=== PATIENT | male | born 1965 | race Caucasian/White ===

== ENCOUNTER 2016-08-01 12:32 | Emergency (ER) | payer OTHER ==
[2016-08-01 13:33] LABS: BASOPHILS 0.3 % (0.0-2.0); EOSINOPHILS 0 % (0-7); HEMATOCRIT 43.4 % (42.0-54.0); HEMOGLOBIN 14.7 g/dL (13.5-17.5); IMMATURE GRANULOCYTES 0.3 % (0-5); LYMPHOCYTES 4.4 % (15-50); MCH 30.9 pg (26.0-34.0); MCHC 33.9 g/dL (31.0-37.0); MCV 91.2 fL (80.0-100.0); MEAN PLATELET VOLUME 11.1 fL (7.4-10.4); MONOCYTES 15.8 % (2-11); NEUTROPHILS 79.2 % (40-80); PLATELET COUNT 154 10x3/uL (130-400); RBC 4.76 10x6/uL (4.20-6.10); RDW 12.8 % (11.5-14.5); WBC 6.1 10x3/uL (4.8-10.8)
[2016-08-01 13:51] LABS: ALBUMIN 3.8 g/dL (3.4-5.0); BILIRUBIN - TOTAL 0.25 mg/dL (0.2-1.3); CALCIUM 8.3 mg/dL (8.5-10.1); CARBON DIOXIDE 23.7 mmol/L (21.0-32.0); CREATININE - SERUM 1.1 mg/dL (0.6-1.3); POTASSIUM - SERUM 3.7 mmol/L (3.5-5.1); PROTEIN - SERUM 6.6 g/dL (6.4-8.2)
== END 2016-08-01 17:40 | disposition home or self-care (01) ==
LOC: D.ER 12:32
PROVIDERS: Emergency Medicine
DX: J11.1 Influenza due to unidentified influenza virus with other respiratory manifestations (principal); J20.9 Acute bronchitis, unspecified; R50.9 Fever, unspecified; J06.9 Acute upper respiratory infection, unspecified; J45.909 Unspecified asthma, uncomplicated; J44.9 Chronic obstructive pulmonary disease, unspecified; F17.200 Nicotine dependence, unspecified, uncomplicated

== ENCOUNTER 2018-03-31 16:29 | Emergency (ER) | payer SELFPAY ==
[~2018-03-31] VITALS: Ht 188 cm; Wt 77.3 kg
[2018-03-31 16:33] VITALS: Ht 188 cm; Wt 77.3 kg
[2018-03-31] MEDS ORDERED: DICLOFENAC SODI50 MG PO (19:23)
[2018-03-31 19:45] VITALS: BP 140/96
== END 2018-03-31 19:45 | disposition home or self-care (01) ==
LOC: D.ER 16:29
DX: M25.552 Pain in left hip (principal); M16.12 Unilateral primary osteoarthritis, left hip; F17.200 Nicotine dependence, unspecified, uncomplicated

== ENCOUNTER 2019-07-12 13:08 | Emergency (ER) | payer SELFPAY ==
[~2019-07-12] VITALS: Ht 188 cm; Wt 77.3 kg
[~2019-07-12 13:08] MED LIST: DICLOFENAC SODI50 MG PO
[2019-07-12 13:27] VITALS: BP 155/94; Ht 188 cm; Wt 77.3 kg
[2019-07-12] MEDS ORDERED: IPRAT-ALBUT 0.5-3 ML UPD (13:31)
[2019-07-12 14:04] LABS: BILIRUBIN NEGATIVE (NEGATIVE); GLUCOSE NEGATIVE (NEGATIVE); KETONE NEGATIVE (NEGATIVE); NITRITE NEGATIVE (NEGATIVE); UROBILINOGEN NORMAL (NORMAL)
[2019-07-12 14:22] LABS: BASOPHILS 0.5 % (0-2); EOSINOPHILS 3.7 % (0-7); HEMATOCRIT 42.5 % (42.0-54.0); HEMOGLOBIN 14.5 g/dL (13.5-17.5); IMMATURE GRANULOCYTES 0.1 % (0-5); LYMPHOCYTES 39.3 % (15-50); MCHC 34.1 g/dL (31.0-37.0); MCV 90.8 fL (80.0-100.0); MEAN PLATELET VOLUME 10.4 fL (7.4-10.4); MONOCYTES 8.6 % (2-11); NEUTROPHILS 47.8 % (40-80); PLATELET COUNT 251 10x3/uL (130-400); RBC 4.68 10x6/uL (4.20-6.10); RDW 12.7 % (11.5-14.5); WBC 7.3 10x3/uL (4.8-10.8)
[2019-07-12 14:37] LABS: CALC OSMOLALITY 278 mosm/kg (275-300); CALCIUM 8.5 mg/dL (8.5-10.1); CARBON DIOXIDE 28.6 mmol/L (21.0-32.0); CHLORIDE - SERUM 104 mmol/L (98-107); GLUCOSE 84 mg/dL (74-106); POTASSIUM - SERUM 3.4 mmol/L (3.5-5.1); SODIUM 140 mmol/L (136-145); UREA NITROGEN 16 mg/dL (7-18); eGFR NON AFRICAN AMERICAN 82 mL/min (90-120)
[2019-07-12 14:44] LABS: ALBUMIN 3.8 g/dL (3.4-5.0); ALKALINE PHOSPHATASE 103 U/L (30-120); ALT (SGPT) 34 U/L (10-68); AMYLASE - SERUM 86 U/L (25-115); BILIRUBIN - TOTAL 0.17 mg/dL (0.2-1.3); LIPASE 146 U/L (73-393); PROTEIN - SERUM 7.2 g/dL (6.4-8.2); TROPONIN-I < 0.017 ng/mL (0.000-0.060)
[2019-07-12] MEDS ORDERED: PROTONIX20 MG PO (16:02)
== END 2019-07-12 16:24 | disposition home or self-care (01) ==
LOC: D.ER 13:08
PROVIDERS: Emergency Medicine
DX: R10.13 Epigastric pain (principal); E87.6 Hypokalemia

== ENCOUNTER 2020-08-27 20:37 | Inpatient (IN) | payer SELFPAY ==
[~2020-08-27] VITALS: Ht 188 cm; Wt 81.8 kg
[~2020-08-27 20:37] MED LIST changes: +IPRAT-ALBUT 0.5-3 ML UPD; +PROTONIX20 MG PO; +TYLENOL W/CODEI1 TAB PO; +VOLTAREN75 MG PO
[2020-08-27 21:00] VITALS: BP 138/86
[2020-08-27 21:23] LABS: BASOPHILS 0.6 % (0-2); EOSINOPHILS 2.9 % (0-7); HEMATOCRIT 42.2 % (42.0-54.0); HEMOGLOBIN 14.3 g/dL (13.5-17.5); IMMATURE GRANULOCYTES 0.2 % (0-5); LYMPHOCYTES 29.2 % (15-50); MCH 30.9 pg (26.0-34.0); MCHC 33.9 g/dL (31.0-37.0); MCV 91.1 fL (80.0-100.0); MEAN PLATELET VOLUME 10.9 fL (7.4-10.4); MONOCYTES 8.7 % (2-11); NEUTROPHILS 58.4 % (40-80); PLATELET COUNT 260 10x3/uL (130-400); RBC 4.63 10x6/uL (4.20-6.10); RDW 12.9 % (11.5-14.5); WBC 9.6 10x3/uL (4.8-10.8)
[2020-08-27 21:27] LABS: APTT 32.2 SECONDS (22.8-39.4); CALC OSMOLALITY 285 mosm/kg (275-300); CALCIUM 8.6 mg/dL (8.5-10.1); CHLORIDE - SERUM 105 mmol/L (98-107); CREATININE - SERUM 1.1 mg/dL (0.6-1.3); INR 1.05 (0.85-1.17); POTASSIUM - SERUM 3.3 mmol/L (3.5-5.1); PROTIME 12.7 SECONDS (11.6-15.0); SODIUM 141 mmol/L (136-145); UREA NITROGEN 21 mg/dL (7-18); eGFR NON AFRICAN AMERICAN 73 mL/min (90-120)
[2020-08-27 21:33] LABS: GLUCOSE 134 mg/dL (74-106)
[2020-08-27 21:48] LABS: ALBUMIN 3.7 g/dL (3.4-5.0); ALKALINE PHOSPHATASE 103 U/L (30-120); ALT (SGPT) 42 U/L (10-68); BILIRUBIN - TOTAL 0.31 mg/dL (0.2-1.3); CKMB 3.2 U/L (0.0-3.6); CREATINE KINASE 269 UL (21-232); MAGNESIUM - SERUM 2.1 mg/dL (1.8-2.4); PROTEIN - SERUM 7.1 g/dL (6.4-8.2)
[2020-08-27 21:58] LABS: TROPONIN-I 0.092 ng/mL (0.000-0.060)
[2020-08-27 22:00] VITALS: BP 154/95
[2020-08-28 01:07] VITALS: BP 127/73; BMI 23.1
--- NOTE | 2020-08-28 01:37 | NUR ---
REPORT RECEIVED. PT A&O, UP IN BED WITH AT BEDSIDE. NO S/S OF DISTRESS OBSERVED. RR EVEN AND UNLABORED ON RA. PAIN 5/10. BED LOCKED AND LOWERED, CL IN REACH. ASSESSMENT COMPLETED. WILL CONT POC.
[2020-08-28 03:16] LABS: EOSINOPHILS 4.3 % (0-7); HEMATOCRIT 39.1 % (42.0-54.0); HEMOGLOBIN 13.1 g/dL (13.5-17.5); IMMATURE GRANULOCYTES 0.3 % (0-5); LYMPHOCYTE ABS# 2.29 10x3/uL (1.32-3.57); LYMPHOCYTES 32.6 % (15-50); MCH 30.8 pg (26.0-34.0); MCHC 33.5 g/dL (31.0-37.0); MCV 91.8 fL (80.0-100.0); MEAN PLATELET VOLUME 10.5 fL (7.4-10.4); NEUTROPHIL ABS# 3.43 10x3/uL (1.78-5.38); NEUTROPHILS 48.8 % (40-80); PLATELET COUNT 245 10x3/uL (130-400); RBC 4.26 10x6/uL (4.20-6.10); RDW 12.9 % (11.5-14.5)
[2020-08-28 03:48] LABS: ALBUMIN 3.3 g/dL (3.4-5.0); ALKALINE PHOSPHATASE 94 U/L (30-120); ALT (SGPT) 38 U/L (10-68); BILIRUBIN - TOTAL 0.31 mg/dL (0.2-1.3); CALC OSMOLALITY 277 mosm/kg (275-300); CALCIUM 8.1 mg/dL (8.5-10.1); CARBON DIOXIDE 25.3 mmol/L (21.0-32.0); CHLORIDE - SERUM 105 mmol/L (98-107); CKMB 2.8 U/L (0.0-3.6); CREATINE KINASE 197 UL (21-232); GLUCOSE 113 mg/dL (74-106); POTASSIUM - SERUM 3.5 mmol/L (3.5-5.1); PROTEIN - SERUM 6.4 g/dL (6.4-8.2); SODIUM 137 mmol/L (136-145); TROPONIN-I 0.046 ng/mL (0.000-0.060); UREA NITROGEN 21 mg/dL (7-18); eGFR NON AFRICAN AMERICAN 82 mL/min (90-120)
[2020-08-28 05:03] VITALS: BP 116/64
--- NOTE | 2020-08-28 07:40 | NUR ---
Sitting up in chair at bedside, awake/alert/oriented, T/R self ad weston, cont of B/B with BRPs per self ad weston, spouse at bedside, pt denies pain/other discomfort at this time, call light/phone/water within reach, no s/s of acute distress observed.
[2020-08-28 08:00] VITALS: BP 129/68
[2020-08-28 08:26] VITALS: Ht 188 cm; Wt 81.8 kg
[2020-08-28 09:19] LABS: CHOL - HDL RATIO 3.7 ratio (2.3-4.9)
[2020-08-28 10:03] LABS: CKMB 2.6 U/L (0.0-3.6); CREATINE KINASE 189 UL (21-232); TROPONIN-I 0.024 ng/mL (0.000-0.060)
--- NOTE | 2020-08-28 14:28 | HP ---
PATIENT: SALLY RICO MEDICAL RECORD: [id number] ACCOUNT: [id number] LOCATION:[address] : 63 ADMISSION DATE: 08/27/20 PCP: No PCP HISTORY AND PHYSICAL EXAMINATION DATE OF ADMISSION: 08/27/2020 CHIEF COMPLAINT: Chest pain. HISTORY OF PRESENT ILLNESS: This is a 54-year-old male who has no primary care physician and is on no prescription medications, who woke up the morning of 08/27/2020 complaining of sharp substernal chest pain. He has had this off and on several times, it goes up to his jaw, pain is more of a sharp pain, maybe a little pressure, but he denies any shortness of breath, nausea, vomiting, diaphoresis. He has no fever or chills. In the ER, his EKG showed nonspecific changes. His troponin was elevated at 0.092 and he will be admitted for cardiology consult. PAST MEDICAL HISTORY: The patient states he has asthma. He has had a history of a collapsed lung requiring chest tube at some point. PAST SURGICAL HISTORY: He has had shoulder surgeries times 2. CURRENT MEDICATIONS: He is on no prescription medicine. ALLERGIES: HE DOES NOT TOLERATE AUGMENTIN OR ASPIRIN (ASPIRIN UPSETS HIS STOMACH). FAMILY HISTORY: Father at 48 after when a tree fell on him and he did have a history of some sort of "heart problems." His mother is living and she has problems with her immune system and bad back. No diabetes. No hypertension. No known heart disease. HABITS: The patient states he smokes 4 cigarettes a day. He denies alcohol or illicit drug use. SOCIAL HISTORY: He is . 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 REVIEW OF SYSTEMS: GENERAL: No major weight changes. HEENT: No particular sinus or allergy problems. RESPIRATORY: He smokes and states he has a history of asthma, but he is on no medications for that. CARDIAC: He has had this sharp chest pain off and on. No known diagnosis of heart problems. GASTROINTESTINAL: Denies diarrhea, constipation, or heartburn. GENITOURINARY: No significant problems there. MUSCULOSKELETAL: He has a few aches and pains that he attributes to getting older. PHYSICAL EXAMINATION: VITAL SIGNS: This morning, temperature 98.1, pulse 59, respirations 20, blood pressure 116/64, O2 sat 95%. GENERAL: He is awake and alert. He is in no acute distress. His is in HISTORY AND PHYSICAL [id number] SALLY RICO the room. SKIN: Warm and dry. HEENT: Grossly within normal limits. NECK: Supple. No JVD or bruit. HEART: Regular rate and rhythm. LUNGS: Clear. ABDOMEN: Soft, flat, nontender. EXTREMITIES: No edema. NEUROLOGIC: Grossly intact. LABORATORY AND DIAGNOSTIC DATA: EKG nonspecific. CBC with a white count of 9600, hemoglobin 14.3, hematocrit 42.3. Basic metabolic panel; sodium 141, potassium 3.3, chloride 105, CO2 27, BUN 21, creatinine 1.1, glucose 134, calcium 8.6. Liver functions are all normal. INR 1.05. D-dimer less than 0.27. Magnesium was 2.1. CK is a little elevated at 269. Troponin was elevated at 0.092 on admission and his second troponin actually has gone down to 0.046. ProBNP is 28. Chest x-ray shows mild interstitial prominence. ASSESSMENT: 1. Chest pain. 2. Elevated troponin. 3. Smoker. 4. Family history of "heart problems." PLAN: Serial cardiac enzymes. Telemetry. Cardiology has been consulted and he will undergo stress test. We will check his lipid profile before he leaves. Other tests or procedures as warranted. TRANSINT:[id number] Voice Confirmation ID: [id number] DOCUMENT ID: [id number] DENEEN GREENWOOD MD at 1428 CC: [id number] DICTATION DATE: 08/28/20849 BUDDER: 08/28/20 0914 ADM IN [address] [id number] [place] [address]
[2020-08-28 16:12] LABS: CKMB 2.2 U/L (0.0-3.6); CREATINE KINASE 154 UL (21-232)
[2020-08-28 16:14] LABS: TROPONIN-I < 0.017 ng/mL (0.000-0.060)
[2020-08-28 20:00] VITALS: BP 145/67
--- NOTE | 2020-08-28 21:17 | NUR ---
REPORT RECEIEVED. PT A&O, UP IN BEDSIDE CHAIR. NO S/S OF DISTRESS OBSERVED. RR EVEN & UNLABORED ON RA. BED LOCKED AND LOWERED, CHAIR WHEELS LOCKED, CL IN REACH. ASSESSMENT COMPLETE. WILL CONT POC.
[2020-08-29 04:00] VITALS: BP 133/84
--- NOTE | 2020-08-29 07:00 | NUR ---
RECEOVED BEDSIDE REPORT ON PATIENT AND ASSUMED CARE. PATEINT ALERT AND ORIENTED X 4, IV 20 GA TO LEFT FA, NSL, FLUSHES EASILY, DRESSING C/D/I, CM IN PLACE, SR ON MONITOR. BBS - COARSE. NO NEEDS AT THIS TIME. HEAD TO TOE ASSESSMENT COMPLETED.
[2020-08-29 08:23] VITALS: BP 116/77
--- NOTE | 2020-08-29 08:30 | NUR ---
PATIENT AMBULATORY IN [place], NO NEEDS OR COMPLAINTS AT THIS TIME.
--- NOTE | 2020-08-29 10:30 | NUR ---
PATIENT SITTING UP IN BEDSIDE CHAIR, IN ROOM UPDATED AND QUESTIONS ANSWERED. NO NEEDS AT THIS TIME.
--- NOTE | 2020-08-29 13:37 | NUR ---
PATIENT IN ROOM SITTING UP IN BEDSIDE CHAIR VISITING WITH , NO NEEDS AT THIS TIME.
[2020-08-29 15:11] VITALS: BP 134/94
--- NOTE | 2020-08-29 15:20 | NUR ---
PATIENT C/O RIGHT SIDED CHEST PAIN, STATES HAS HAD PNEUMONIA IN THE PAST AND IT HAS ALWAYS FELT THAT WAY, HAS A SCAR ON RIGHT LATERAL CHEST FROM PREVIOUS CHEST. TUBES. CXR FROM THE 08/27/20 INDICATED POSSIBLE MILD INTERSTITIAL PNEUMONIA OR EARLY ATYPICAL PNEUMONIA. PATIENT HAS NOT HAD ANTIBIOTICS OR A REPEAT CXR, ORDERED REPEAT CXR AND SPOKE TO DR. EASON REGARDING SAME.
[2020-08-29] MEDS ORDERED: ALEVE220 MG (17:24)
[2020-08-29] MEDS ORDERED: PROVENTIL/2.5 MG/3 M (17:25)
[2020-08-29] MEDS ORDERED: VIBRAMYCIN 100100 MG PO (17:27)
[2020-08-29] MEDS ORDERED: PROVENTIL/2.5 MG/3 M INH (17:30)
--- NOTE | 2020-08-29 18:17 | NUR ---
PATIENT GIVEN DISCHARGE INSTRUCTIONS AND VERBALIZES UNDERSTANDING, PRESENT AT BEDSIDE AND QUESTIONS ANSWERED. AMBULATORY WITH TECH AND TO CAR.
--- NOTE | 2020-09-02 16:08 | ST ---
PATIENT:SALLY RICO MEDICAL RECORD: [id number] SEX: M LOCATION:D.M2 D.211 ORDER #: ADMISSION DATE: 08/28/20 AGE OF PATIENT: 54 REFERRING PHYSICIAN: INTERPRETING PHYSICIAN: PAOLA RODRIGUEZ MD DATE OF SERVICE: 08/29/2020 NUCLEAR STRESS TEST GATED: Gated is normal with normal wall motion. Normal wall thickening. Calculated EF 52%. SPECT IMAGING: SPECT imaging was performed. 1. Short axis view: Short axis view shows good uptake along the anterior wall, lateral wall, and inferior wall. 2. Horizontal axis: Horizontal axis confirms good uptake along the anterior wall and inferior wall. 3. Vertical axis: Vertical axis shows good uptake along the lateral wall and septum. FINAL IMPRESSION: 1. Normal gated, normal wall motion, normal EF 52%. 2. Normal SPECT imaging. This scan is felt to be at low risk for any significant myocardial ischemia or previous myocardial infarction. LV function is normal. Continue medical management. Risk factor modification is recommended. TRANSINT:[id number] Voice Confirmation ID: [id number] DOCUMENT ID: [id number] PAOLA RODRIGUEZ MD at 1608 CC: [id number] DICTATION DATE: 08/30/20 1238 TENANT COORDINATOR: 08/30/20 2226 DIS IN 08/29/20 [id number] [place] [address]
== END 2020-08-29 18:18 | disposition home or self-care (01) | DRG 204 ==
LOC: D.ER 20:37 → D.M2 23:26 → OBSVTIME 23:27 → D.M2 08-28 15:43
PROVIDERS: Family Medicine; ADMIT Family Medicine; ATTEND Family Medicine
DX: R07.81 Pleurodynia (principal); J18.9 Pneumonia, unspecified organism; J45.909 Unspecified asthma, uncomplicated; F41.9 Anxiety disorder, unspecified